=== PATIENT | female | born 1950 | race Caucasian/White ===

== ENCOUNTER 2016-10-06 09:33 | Day surgery (SDC) | payer BC ==
[2016-10-06] MEDS ORDERED: SURGIFLO MATRIX KIT WITH THROMBIN TP ONE (09:51)
[2016-10-06] MEDS ORDERED: BUPIVACAINE/EPI 0.25% 30 ML SDV ONE (09:52)
[2016-10-06] MEDS ORDERED: BACITRACIN 50,000 UNITS/10 ML SYR IRR ONE (09:52)
[2016-10-06] MEDS ORDERED: THROMBIN (BOVINE) 5,000 UNIT VIAL TP ONE (09:52)
[2016-10-06] MEDS ORDERED: LIDOCAINE 1% 5 ML SDV ID PRN (09:56)
[2016-10-06] MEDS ORDERED: LR 1,000 ML IV ONE (09:56)
[2016-10-06 10:12] LABS: % IMMATURE GRANULYOCYTES 0.4 % (0.0-1.1); ABSOLUTE IMMATURE GRANULOCYTES 0.04 10^3/uL (0.00-0.10); ADD DIFF? NO; ADD MORPH? NO; ADD SCAN? NO; ATYPICAL LYMPHOCYTE FLAG 0 (0-99); FRAGMENT RBC FLAG 0 (0-99); HEMATOCRIT 42.2 % (38.0-47.0); HEMOGLOBIN 14.5 g/dL (12.6-16.3); LEFT SHIFT FLG 0 (0-99); LIPEMIA HEMOLYSIS FLAG 90 (0-99); MEAN CELL HEMOGLOBIN 29.2 pg (27.9-34.1); MEAN CELL HEMOGLOBIN CONCENTR. 34.4 g/dL (32.4-36.7); MEAN CELL VOLUME 84.9 fL (81.5-99.8); MEAN PLATELET VOLUME 10.2 fL (8.7-11.7); PLATELET CLUMPS FLAG 0 (0-99); PLATELET COUNT 417 10^3/uL (150-400); RED BLOOD CELL COUNT 4.97 10^6/uL (4.18-5.33); RED CELL DISTRIBUTION WIDTH 12.8 % (11.5-15.2)
--- NOTE | 2016-10-06 10:26 | CPEKG ---
Heart Rate: 85 RR Interval: 706 P-R Interval: 152 QRSD Interval: 86 QT Interval: 376 QTC Interval: 447 P [place]: 70 QRS [place]: 68 T Wave [place]: 58 EKG Severity - ABNORMAL ECG - EKG Impression: SINUS RHYTHM EKG Impression: POSSIBLE INFERIOR INFARCT, OLD Electronically Signed By: Rukhsana Portillo 06-Oct-2016 12:19:37
[2016-10-06] MEDS ORDERED: VANCOMYCIN 1 GM/NS 250 ML BAG IV ONE (10:31)
[2016-10-06 10:32] LABS: ANION GAP 11 mEq/L (8-16); CALCIUM 10.2 mg/dL (8.5-10.4); CARBON DIOXIDE 23 mEq/l (22-31); CHLORIDE 106 mEq/L (97-110); CREATININE 0.8 mg/dL (0.6-1.0); GLOMERULAR FILTRATION RATE > 60; GLUCOSE 118 mg/dL (70-100); POTASSIUM 4.5 mEq/L (3.5-5.2); SODIUM 140 mEq/L (134-144)
[2016-10-06 10:35] LABS: INR 0.97 (0.83-1.16); PROTIME(PATIENT) 12.8 SEC (12.0-15.0)
[2016-10-06 10:36] LABS: APTT 26.4 SEC (23.0-38.0)
[2016-10-06] MEDS ORDERED: MIDAZOLAM 2 MG/2 ML VIAL ONE (10:43)
[2016-10-06] MEDS ORDERED: REMIFENTANIL HCL 1 MG VIAL ONE (10:52)
[2016-10-06] MEDS ORDERED: fentaNYL 100 MCG/2 ML INJ ONE ×3 (10:52→13:18)
[2016-10-06] MEDS ORDERED: KETAMINE 100 MG/10 ML SYR IVP ONE (10:53)
[2016-10-06] MEDS ORDERED: PROPOFOL/EMULSION 500 MG/50 ML BOTTLE IV ONE (10:53)
[2016-10-06] MEDS ORDERED: PROPOFOL 200 MG/20 ML VIAL ONE (10:53)
[2016-10-06] MEDS ORDERED: VANCOMYCIN 1.25 GM in D5W 250 ML IV ONE (12:00)
[2016-10-06] MEDS ORDERED: methylPREDNISolone SOD SUCC 125 MG/2 ML VIAL ONE (12:19)
--- NOTE | 2016-10-06 13:26 | GHP ---
[f rep st] PREOP HISTORY AND PHYSICAL DATE OF ADMISSION: 10/06/2016 PREOPERATIVE DIAGNOSES: 1. Radiculopathy. 2. Right L5-S1 medial facet cyst. POSTOPERATIVE DIAGNOSES: 1. Radiculopathy. 2. Right L5-S1 medial facet cyst. PROCEDURE: 1. Right L5-S1 hemilaminectomy, foraminotomy, resection of medial facet cyst. 2. Microscope. [employer]: THERON Felder. EBL: 30 mL. FLUIDS: 1 L crystalloid. URINE OUTPUT: None. DRAINS: None. SPECIMENS: None. COMPLICATIONS: None. INDICATIONS: This is a 65-year-old female with a severe radiculopathy concordant to a right L5-S1 m edial facet cyst, with severe stenosis, foraminal and central, who elected to move forward with venu laminectomy foraminotomy, resection of facet cyst. DESCRIPTION OF PROCEDURE: She was identified, consented, sites were marked, brought to the operatin g room, anesthetized under general endotracheal tube anesthesia. Rolled onto the OR bed with a Wils on frame. All pressure points were appropriately padded. She was cleansed with ChloraPrep. Incisi on site was marked using an 18-gauge spinal needle and x-ray. Incision was prepped and draped in th e usual sterile fashion. Incision was anesthetized with 0.5% Marcaine with epinephrine. Incision w as made with a 10 blade. Hemostasis was obtained with Bovie and bipolar cautery. Using the Bovie, dissected down onto the right side, the lamina of L5 and S1. Took an x-ray, verified we were in kathy ropriate position. Placed a Shadow-Line retractor. Brought in the microscope. Used a high-speed d rill to create an almost complete laminectomy at L5 and laminotomy of the superior portion of S1. O pening the ligamentum flavum with a ball-tip probe, we then used 2, 3, and 4 Kerrisons to gently pee l the facet cyst off the dura and completely resected facet cyst to perform a complete foraminotomy. Took an x-ray, verified we were in the appropriate position, and that the nerve root was well deco mpressed, and the foramen was well decompressed. We then copiously irrigated with over a liter of b acitracin-infused saline. Meticulous hemostasis was obtained with bipolar cautery. We then placed 125 mg of Solu-Medrol directly over the nerve. Removed the Shadow-Line retractor. Removed the micr oscope. Closed the fascia with 0 Vicryl pop-offs, subcutaneous layer with 2-0 Vicryl pop-offs, cuta neous layer with 3-0 Vicryl pop-offs. The skin was closed with 4-0 running Monocryl and Steri-Strip s. No drain. Patient tolerated procedure well. Neuro monitoring remained stable. There were no c omplications. /[id number]/MODL
[2016-10-06] MEDS ORDERED: oxyCODONE IR 5 MG TAB PO PRN (14:55)
[2016-10-06] MEDS ORDERED: METHOCARBAMOL 750 MG TAB PO PRN (14:55)
[2016-10-06] MEDS ORDERED: ONDANSETRON 4 MG/2 ML VIAL IVP PRN (14:56)
== END 2016-10-06 15:05 | disposition home or self-care (01) ==
LOC: FSGY 09:33
PROVIDERS: ATTEND Neurological Surgery
DX: M71.38 Other bursal cyst, other site (principal); M48.06 Spinal stenosis, lumbar region; M54.16 Radiculopathy, lumbar region; F32.9 Major depressive disorder, single episode, unspecified
CPT/HCPCS: J2250; J2704; J3010; J3370